=== PATIENT | female | born 1995 | race African-American/Black ===

== ENCOUNTER 2022-01-12 11:49 | Emergency (ER) | payer MEDICAID ==
[~2022-01-12] VITALS: Ht 165.1 cm; Wt 54.0 kg
[2022-01-12 11:58] VITALS: BP 119/66
[2022-01-12 14:31] LABS: HEMATOCRIT. 38.4 % (36.0-48.0); HEMOGLOBIN. 13.2 g/dL (12.0-16.0); MEAN CORPUSCULAR VOLUME 92.8 fL (81.0-99.0); MEAN PLATELET VOLUME 8.7 fl (7.4-10.4); PLATELET 205 x1000/uL (130-400); RED BLOOD CELL COUNT 4.14 mill/uL (4.2-5.4); RED CELL DISTRIBUTION WIDTH 13.5 % (11.6-14.6)
[2022-01-12 14:42] LABS: HCG SCREEN NEGATIVE
[2022-01-12 14:43] LABS: CHLORIDE 109 mEq/L (98-107)
[2022-01-12 14:50] LABS: ETHANOL BLOOD < 10 mg/dL
[2022-01-12 16:41] LABS: PLATELET ESTIMATE NORMAL
[2022-01-12 18:35] LABS: CLARITY URINE CLEAR (CLEAR); COLOR URINE YELLOW (YELLOW); KETONES URINE 3+ (NEGATIVE); LEUKOCYTE ESTERASE URINE NEGATIVE (NEGATIVE); NITRITE URINE NEGATIVE (NEGATIVE); OCCULT BLOOD URINE NEGATIVE (NEGATIVE); PH URINE 7.5 (4.5-8.0); PROTEIN URINE NEGATIVE (NEGATIVE); SPECIFIC GRAVITY URINE 1.026 (1.005-1.030)
[2022-01-12 18:48] LABS: *AMPHETAMINES SCREEN URINE NEGATIVE (NEGATIVE); *BARBITURATES SCREEN URINE NEGATIVE (NEGATIVE); *BENZODIAZEPINES SCREEN URINE NEGATIVE (NEGATIVE); *COCAINE SCREEN URINE NEGATIVE (NEGATIVE); METHADONE URINE SCREEN NEGATIVE (NEGATIVE); OPIATES URINE SCREEN NEGATIVE (NEGATIVE); PHENCYCLIDINE URINE SCREEN NEGATIVE (NEGATIVE)
[2022-01-12 18:54] LABS: CANNABINOID URINE SCREEN PRESUMTIVE POSITIVE (NEGATIVE)
[2022-01-12] MEDS ORDERED: TOPUD MT (18:59)
[2022-01-12] MEDS ORDERED: ONDANSETRON 4MG ODT PO ONE (19:00)
[2022-01-12] MEDS ORDERED: ACETAMINOPHEN 325MG TABLET PO ONE (19:00)
[2022-01-12] MEDS ORDERED: ONDA4TAB11 PO (19:00)
== END 2022-01-12 20:28 | disposition home or self-care (01) ==
LOC: ER 11:49
DX: R11.2 Nausea with vomiting, unspecified (principal); Z88.6 Allergy status to analgesic agent
CPT/HCPCS: 36415; 80053; 80305; 80320; 81003; 83690; 84703; 85025; 99283; Q0162; G0480

== ENCOUNTER 2024-04-04 11:33 | Emergency (ER) | payer SELFPAY ==
[~2024-04-04] VITALS: Ht 162.6 cm; Wt 66.0 kg
[~2024-04-04 11:33] MED LIST: ONDA4TAB11 PO; TOPUD MT
[2024-04-04 11:35] VITALS: O2SAT 100
[2024-04-04] MEDS ORDERED: SULF1TAB48 MT (12:27)
[2024-04-04] MEDS ORDERED: CYCL5TAB MT (12:27)
[2024-04-04] MEDS ORDERED: ACET-2708 MT (12:27)
[2024-04-04] MEDS: ACETAMINOPHEN 325MG TABLET PO ONE (12:57)
[2024-04-04 13:01] VITALS: BP 100/50; PULSE 88; RESP 16; TEMP 98.2
== END 2024-04-04 13:02 | disposition home or self-care (01) ==
LOC: ER 11:33
DX: S39.012A Strain of muscle, fascia and tendon of lower back, initial encounter (principal); J45.909 Unspecified asthma, uncomplicated; L05.91 Pilonidal cyst without abscess; Z79.899 Other long term (current) drug therapy; X58.XXXA Exposure to other specified factors, initial encounter; Y93.89 Activity, other specified; Y92.89 Other specified places as the place of occurrence of the external cause; Y99.8 Other external cause status
CPT/HCPCS: 99283